=== PATIENT | female | born 1970 | race American Indian/Alaskan Native ===

== ENCOUNTER 2018-03-16 08:58 | Emergency (ER) | payer SELFPAY ==
[2018-03-16 09:06] VITALS: BP 134/89
--- NOTE | 2018-03-16 09:19 | Emergency Department Report ---
ED Fall HPI - General Chief Complaint: Fall Stated Complaint: FALL/BACK/KNEE/LEG PAIN Time Seen by Provider: 03/16/18 09:13 Source: patient Mode of arrival: Ambulatory - History of Present Illness Initial Comments: She stated that she felt from a stool last night while she was at a bar yesterday. Patient denied any loss of consciousness or head injury. No weakness numbness or pain sensation. Patient is complaining of lower back pain and bilateral knee pain. MD Complaint: fall -: Sudden, Last night Fall From: other (from a stool) When Fall Occurred: 24 hours [employer] Fall Witnessed: yes, by bystander Place Fall Occurred: other (bar) Loss of Consciousness: none Prolonged Down Time?: no Symptoms Prior to Fall: none Location: back Location - Extremities: Left: Knee, Right: Knee Context: tripped/slipped Associated Symptoms: denies: headache, neck pain, numbness, weakness, chest paint, shortness of breath, abdominal pain, hematuria, unable to walk, lightheaded, vertigo, confusion, other - Related Data Allergies Allergy/AdvReac Type Severity Reaction Status Date / Time No Known Allergies Allergy Unverified 03/16/18 09:05 ED Review of Systems ROS: Stated complaint: FALL/BACK/KNEE/LEG PAIN Other details as noted in HPI Comment: All other systems reviewed and negative Constitutional: denies: chills Respiratory: denies: cough, shortness of breath Cardiovascular: denies: chest pain Gastrointestinal: denies: abdominal pain ED Past Medical Hx - Past Medical History Previous Medical History?: Yes Additional medical history: TIA. High cholesterol - Surgical History Past Surgical History?: No - Social History Smoking Status: Never Smoker Substance Use Type: None ED Physical Exam - General Limitations: No Limitations General appearance: alert, in no apparent distress - Head Head exam: Present: atraumatic, normocephalic, normal inspection - Eye Eye exam: Present: normal appearance, PERRL - ENT ENT exam: Present: normal exam, normal orophraynx - Neck Neck exam: Present: normal inspection, full ROM. Absent: tenderness, meningismus, lymphadenopathy, thyromegaly - Respiratory Respiratory exam: Present: normal lung sounds bilaterally - Cardiovascular Cardiovascular Exam: Present: regular rate, normal heart sounds - GI/Abdominal GI/Abdominal exam: Present: soft. Absent: distended, tenderness, guarding, rebound, rigid - Extremities Exam Extremities exam: Present: normal inspection, full ROM, normal capillary refill. Absent: tenderness, pedal edema, joint swelling - Back Exam Back exam: Present: normal inspection, full ROM, muscle spasm. Absent: tenderness, CVA tenderness (R), CVA tenderness (L), paraspinal tenderness, vertebral tenderness, rash noted - Neurological Exam Neurological exam: Present: alert, oriented X3, CN II-XII intact, normal gait - Skin Skin exam: Present: warm, intact, normal color ED Course Vital Signs 03/16/18 09:00 Temperature 98.6 F Pulse Rate 89 Respiratory 16 Rate Blood Pressure 134/89 O2 Sat by Pulse 100 Oximetry ED Medical Decision Making - Radiology Data Radiology results: report reviewed X-ray of the lumbosacral area is unremarkable for acute finding. Critical care attestation.: If time is entered above; I have spent that time in minutes in the direct care of this critically ill patient, excluding procedure time. ED Disposition Clinical Impression: Fall, Lumbar strain Disposition: - TO HOME OR SELFCARE Is pt being admited?: No Condition: Stable Instructions: Muscle Strain (ED)
--- NOTE | 2018-03-16 09:56 | XRay Report ---
LUMBAR SPINE RADIOGRAPHS: INDICATION: Back injury. COMPARISON: None similar. FINDINGS: AP and lateral lumbar spine radiographs demonstrate preserved vertebral body stature, alignment and disc heights. Colonic stool/possible constipation. No obstruction. Normal bilateral SI joints. CONCLUSION: No acute lumbar radiographic abnormality. Thank you for the opportunity to participate in this patient's care.
== END 2018-03-16 10:12 | disposition home or self-care (01) ==
LOC: ED 08:58
DX: S39.012A Strain of muscle, fascia and tendon of lower back, initial encounter (principal); M25.561 Pain in right knee; M25.562 Pain in left knee; E78.00 Pure hypercholesterolemia, unspecified; Z86.73 Personal history of transient ischemic attack (TIA), and cerebral infarction without residual deficits; W08.XXXA Fall from other furniture, initial encounter; Y93.89 Activity, other specified; Y99.8 Other external cause status; Y92.838 Other recreation area as the place of occurrence of the external cause
CPT/HCPCS: 72100; 99283

== ENCOUNTER 2018-05-28 10:53 | Outpatient (CLI) | payer OTHER ==
--- NOTE | 2018-05-28 13:32 | Mammography Report ---
Screening mammogram: Routine views demonstrate a heterogeneously dense fibroglandular pattern. There is a focal asymmetry in the upper-outer right breast. There are surgical clips located in the superolateral anterior left breast. The findings are not otherwise remarkable. Comparing the current exam to her prior exam in 2009 demonstrates that the surgical clips occurred since then. The right asymmetry is seemingly present on her prior CC images but not identified in the MLO projection. It was identified as a simple cyst on prior ultrasound. CAD used. Impression: Right breast asymmetry questionably new since prior exam. Recommendation: Additional compression imaging of the right breast and right breast ultrasound. BI-RADS CATEGORY: 0 = Needs additional imaging evaluation ACR BI-RADS MAMMOGRAPHIC CODES: 0 = Needs additional imaging evaluation; 1 = Negative; 2 = Benign; 3 = Probably benign; 4 = Suspicious; 5 = Malignant; 6 = Known biopsy-proven malignancy COMMENT: 1. Dense breast tissue, i.e., adenosis, fibrocystic changes, etc., may obscure an underlying neoplasm. 2. Approximately 10% of cancers are not detected with mammography. 3. A negative mammography report should not delay biopsy if a clinically suspicious mass is present.
== END 2018-05-28 10:54 | disposition home or self-care (01) ==
LOC: SPVWC 10:53
PROVIDERS: ATTEND Internal Medicine
DX: Z12.31 Encounter for screening mammogram for malignant neoplasm of breast (principal)
CPT/HCPCS: 77067

== ENCOUNTER 2018-11-18 05:47 | Day surgery (SDC) | payer OTHER ==
[~2018-11-18 05:47] MED LIST: NACL 0.9% 1000 ML 1,000 ML IV SCH
[2018-11-18] MEDS ORDERED: WATER FOR IRRIG STERILE ONE (06:44)
[2018-11-18] MEDS ORDERED: WATER FOR IRRIG STERILE IR ONE (06:44)
[2018-11-18] MEDS ORDERED: NACL 0.9% 1000 ML 1,000 ML IV SCH (07:00)
[2018-11-18] MEDS ORDERED: DIPRIVAN 10 MG/ML IV ONE ×3 (07:17→08:43)
[2018-11-18] MEDS ORDERED: XYLOCAINE 2% INFILTRATI ONE (07:17)
--- NOTE | 2018-11-18 07:26 | Anesthesia Consultation ---
Anesthesia Consult and Med Hx Date of service: 11/18/18 - Airway Anesthetic Teeth Evaluation: Good ROM Head & Neck: Adequate Mental/Hyoid Distance: Adequate Mallampati Class: Class II Intubation Access Assessment: Probably Good - Pre-Operative Health Status ASA Pre-Surgery Classification: ASA2 Proposed Anesthetic Plan: MAC - Pulmonary Hx Smoking: No Hx Asthma: No COPD: No - Cardiovascular System Hx Hypertension: Yes - Central Nervous System CVA: Yes - Hematic Hx Anemia: Yes
--- NOTE | 2018-11-18 07:26 | Anesthesia Day of Surgery ---
Anesthesia Day of Surgery - Day of Surgery Patient Examined: Yes Patient H&P Reviewed: Yes Patient is NPO: Yes
[2018-11-18 09:07] VITALS: BP 129/77
--- NOTE | 2018-11-18 09:52 | Post Anesthesia Evaluation ---
- Post Anesthesia Evaluation Patient Participated: No (sleeping) Airway Patent: Yes Stable Respiratory Function: Yes Nausea/Vomiting: No Temp > 96.8F: Yes Pain Manageable: Yes Adequeate Hydration: Yes Anesthesia Complications: No Block Receding Appropriately: Not Applicable Patient on Ventilator: No
== END 2018-11-18 05:48 | disposition home or self-care (01) ==
LOC: GIO 05:47
PROVIDERS: ATTEND Internal Medicine Gastroenterology
DX: Z12.11 Encounter for screening for malignant neoplasm of colon (principal); D12.2 Benign neoplasm of ascending colon; K64.8 Other hemorrhoids; K57.30 Diverticulosis of large intestine without perforation or abscess without bleeding; K21.9 Gastro-esophageal reflux disease without esophagitis; I10 Essential (primary) hypertension; G43.909 Migraine, unspecified, not intractable, without status migrainosus; E11.9 Type 2 diabetes mellitus without complications; D64.9 Anemia, unspecified; Z79.82 Long term (current) use of aspirin; Z79.899 Other long term (current) drug therapy; Z91.040 Latex allergy status; Z88.8 Allergy status to other drugs, medicaments and biological substances; Z98.51 Tubal ligation status; Z86.711 Personal history of pulmonary embolism; Z86.73 Personal history of transient ischemic attack (TIA), and cerebral infarction without residual deficits; Z80.8 Family history of malignant neoplasm of other organs or systems; Z82.49 Family history of ischemic heart disease and other diseases of the circulatory system
CPT/HCPCS: 45380; 88305; J2704; J7030

== ENCOUNTER 2019-01-19 12:25 | Outpatient (CLI) | payer OTHER ==
--- NOTE | 2019-01-19 14:58 | Ultrasound Report ---
RIGHT DIGITAL DIAGNOSTIC MAMMOGRAM and right breast ultrasound: 01/19/19 12:25:00 CLINICAL: Upper outer asymmetries on screening mammogram. COMPARISON:05/28/18 mammogram FINDINGS: Satisfactory effacement of previously identified upper outer asymmetries. However, additional new asymmetries are identified. Ultrasound of the right breast (including all four quadrants and the retroareolar area) was performed and demonstrated numerous benign cysts. The largest is at 10 o'clock 5 cm from the nipple and measures 11 x 7 x 6 mm. It appears to correlate with the previously identified asymmetry. An oval complex cyst versus solid mass at 6 o'clock 1 cm from the nipple measures 1.0 x 0.6 x 0.8 cm. IMPRESSION: Numerous benign cysts and a complex cyst versus solid right breast mass at 6 o'clock 1 cm from the nipple. BI-RADS CATEGORY: 4--Suspicious RECOMMENDATION: Ultrasound guided needle aspiration and core biopsy of the lesion at 6 o'clock 1 cm from the nipple if fluid is not obtained with aspiration. I discussed the findings and the recommendation for aspiration/needle core biopsy with the patient at the time of the examination. ACR BI-RADS MAMMOGRAPHIC CODES: 0 = Needs additional imaging evaluation; 1 = Negative; 2 = Benign; 3 = Probably benign; 4 = Suspicious; 5 = Malignant; 6 = Known biopsy-proven malignancy COMMENT: 1. Dense breast tissue, i.e., adenosis, fibrocystic changes, etc., may obscure an underlying neoplasm. 2. Approximately 10% of cancers are not detected with mammography. 3. A negative mammography report should not delay biopsy if a clinically suspicious mass is present. COMMENT: Patient follow-up letters are generated via our [employer] system application.
== END 2019-01-19 12:26 | disposition home or self-care (01) ==
LOC: SPVWC 12:25
PROVIDERS: ATTEND Internal Medicine
DX: N60.01 Solitary cyst of right breast (principal); I10 Essential (primary) hypertension; K21.9 Gastro-esophageal reflux disease without esophagitis

== ENCOUNTER 2019-02-09 11:36 | Outpatient (CLI) | payer OTHER ==
--- NOTE | 2019-02-09 14:22 | Mammography Report ---
RIGHT DIGITAL DIAGNOSTIC MAMMOGRAM: 02/09/19 11:36:00 CLINICAL: For clip placement immediately status post ultrasound biopsy. COMPARISON:01/19/19 FINDINGS: A biopsy clip is now identified at 6 o'clock and is concordant with the ultrasound finding. IMPRESSION: Concordant clip placement status post ultrasound biopsy. BI-RADS CATEGORY: 4--Suspicious Pathology pending.
--- NOTE | 2019-02-09 15:18 | Ultrasound Report ---
ULTRASOUND GUIDED NEEDLE CORE BIOPSY RIGHT BREAST WITH CLIP PLACEMENT: 02/09/19 CLINICAL: Complex cyst versus solid mass at 6 o'clock 2 cm from the nipple. COMPARISON :01/19/19 FINDINGS: The procedure was explained to the patient and informed consent was obtained. Ultrasound demonstrated the previously described an oval heterogeneous hypoechoic solid appearing mass at 6 o'clock 2 cm from the nipple. I opted to not attempt aspiration. I marked the breast with a felt tip marker and a time out was called. The skin was prepped with Betadine and anesthetized with 1% lidocaine. Needle core biopsy was performed through a tiny dermatotomy using ultrasound guidance, 2% lidocaine with epinephrine for deep anesthesia and a 14-gauge Achieve biopsy device. 2 cores were obtained and placed in formalin. Within the second core was obtained, a moderate amount of pulsating hemorrhage was observed at the incision. I applied pressure and achieve satisfactory hemostasis within about 4 minutes. I opted to end the procedure and deployed a clip within the mass. A sterile dressing with an Abhijit bandage wrap was applied. A two view mammogram demonstrated satisfactory placement of the clip and minimal hematoma in the breast. She left the department in good condition and was given instructions for wound care and followup. IMPRESSION: Ultrasound guided needle core biopsy of the right breast with a slightly greater than usual amount of hemorrhage observed during the procedure.
== END 2019-02-09 11:37 | disposition home or self-care (01) ==
LOC: SPVWC 11:36
PROVIDERS: ATTEND Internal Medicine
DX: D24.1 Benign neoplasm of right breast (principal); N60.91 Unspecified benign mammary dysplasia of right breast; N60.81 Other benign mammary dysplasias of right breast; I10 Essential (primary) hypertension; K21.9 Gastro-esophageal reflux disease without esophagitis; Z91.040 Latex allergy status; Z86.711 Personal history of pulmonary embolism; Z86.2 Personal history of diseases of the blood and blood-forming organs and certain disorders involving the immune mechanism
CPT/HCPCS: 88305

== ENCOUNTER 2019-04-02 15:36 | Outpatient (CLI) | payer OTHER | END 2019-04-02 15:37 | disposition home or self-care (01) | LOC: LABHHL 15:36 | PROVIDERS: ATTEND Surgery | DX: T88.8XXA Other specified complications of surgical and medical care, not elsewhere classified, initial encounter (principal); I10 Essential (primary) hypertension; K21.9 Gastro-esophageal reflux disease without esophagitis; Y83.9 Surgical procedure, unspecified as the cause of abnormal reaction of the patient, or of later complication, without mention of misadventure at the time of the procedure | CPT/HCPCS: 87075; 87116 ==

== ENCOUNTER 2020-11-15 08:54 | Outpatient (CLI) | payer OTHER ==
--- NOTE | 2020-11-15 10:00 | Mammography Report ---
DIGITAL DIAGNOSTIC MAMMOGRAM WITH CAD CONVENTIONAL, 11/15/2020 CLINICAL INFORMATION / INDICATION: RIGHT BREAST LUMP TECHNIQUE: Digital right mammographic imaging was performed. Spot compression views were obtained. This examination was interpreted with the benefit of Computer-aided Detection analysis. COMPARISON: 04/27/2020, 02/09/2019, 01/19/2019 FINDINGS: Breast Density: The breast is heterogeneously dense, which may obscure small masses. More prominent multifocal nodularity is seen throughout the upper outer right breast without a suspic ious dominant mass, asymmetry or suspicious calcification. IMPRESSION: Nonspecific increased prominence of nodularity throughout the upper outer right breast. A right breast ultrasound is recommended for further evaluation. Follow up recommendation: Ultrasound BI-RADS Category 0: Incomplete. Needs additional imaging evaluation and/or prior mammograms for ruslan ramon. A "normal" or negative report should not discourage follow up or biopsy of a clinically significant f inding. A written summary of these findings will be mailed to the patient. The patient will be entered into a mammography reporting system which will generate a reminder letter for the patient's next appointmen t at the appropriate interval. According to the [employer], yearly mammograms are recommended starting at age 40 and continuing as long as a woman is in good health. Breast MRI is recommended for women with an kristina roximately 20-25% or greater lifetime risk of breast cancer, including women with a strong family his tory of breast or ovarian cancer and women who have been treated for Hodgkin's disease. Signer Name: Russell Gordon MD Signed: 11/15/2020 9:55 AM Workstation Name: [email or web address]
--- NOTE | 2020-11-15 11:36 | Ultrasound Report ---
ULTRASOUND BREAST RIGHT LIMITED, 11/15/2020 CLINICAL INFORMATION / INDICATION: Right breast lump. TECHNIQUE: Targeted ultrasound evaluation was performed of the area of interest. COMPARISON: Diagnostic right mammogram performed on the same day. FINDINGS: Multiple cysts are seen throughout the upper outer quadrant of the right breast correlating with the mammographically evident nodularity and measuring up to 9 mm without suspicious features. In the 10:0 0 position 5 cm from the nipple is a hypoechoic nodule versus asymmetric glandular tissue measuring 8 x 4 x 4 mm that is parallel with angular margins without internal color flow, calcification or poste rior acoustic shadowing. IMPRESSION: Indeterminate 10:00 right breast nodule as detailed above. Biopsy with ultrasound guidanc e is recommended for further evaluation. Additional benign findings as above. Follow up recommendation: Biopsy BI-RADS Category 4: Suspicious for Malignancy. A normal or "negative" report should not preclude biopsy or follow-up of a clinically suspicious find ing. Signer Name: Russell Gordon MD Signed: 11/15/2020 11:31 AM Workstation Name: [id number]
== END 2020-11-15 08:55 | disposition home or self-care (01) ==
LOC: SPVWC 08:54
PROVIDERS: ATTEND Surgery
DX: N63.11 Unspecified lump in the right breast, upper outer quadrant (principal)

== ENCOUNTER 2020-11-30 09:54 | Outpatient (CLI) | payer OTHER ==
--- NOTE | 2020-11-30 12:56 | Ultrasound Report ---
Limited right breast Ultrasound HISTORY: ABNORMAL U/S. patient with history of right breast cysts and pain as well as a questionable nodule on previous ultrasound, here for aspiration and potential biopsy TECHNIQUE: Grayscale and color imaging performed. COMPARISON: Right breast ultrasound from 11/15/2020 PROCEDURE: The risks (including but not limited to bleeding and infection) and benefits were explain ed to the patient and informed consent was obtained. A time out procedure was performed. The proced ure site was prepped and draped in the usual sterile fashion and lidocaine was used for local anesthe claudia. Under ultrasound guidance, the right breast was evaluated in several simple cysts were present. Previ ously questioned tiny nodule was not identified with specific attention paid to the 10:00 location mi d-breast where this was previously seen. This may have represented a lobule seen in an oblique plane. No biopsy was performed. I did puncture several of the cysts and performed and aspirate which was bonner bmitted to pathology for further evaluation. The patient tolerated the procedure well without complic ation. IMPRESSION: Successful right breast cyst aspiration and rupture with no biopsy performed. Signer Name: Hernan Diez MD Signed: 11/30/2020 12:52 PM Workstation Name: [id number]
== END 2020-11-30 09:55 | disposition home or self-care (01) ==
LOC: US 09:54
PROVIDERS: ATTEND Surgery
DX: N60.01 Solitary cyst of right breast (principal); R92.8 Other abnormal and inconclusive findings on diagnostic imaging of breast
CPT/HCPCS: 76942; 88112; 88173

== ENCOUNTER 2021-02-28 12:08 | Outpatient (CLI) | payer OTHER ==
--- NOTE | 2021-02-28 13:58 | Mammography Report ---
LEFT DIAGNOSTIC MAMMOGRAM INDICATION: Status post left 3:00 breast biopsy. COMPARISON: 04/27/2020. Outside ultrasound performed at Dr. Álvarez's office. FINDINGS: Left breast CC and ML projection mammograms document a U-shaped biopsy marker in the left b reast at the 3:00 position (site of recent ultrasound-guided core biopsy). Postsurgical changes are n oted in this region with multiple surgical janice. IMPRESSION: Left breast mammographic images documenting accurate location of a U-shaped biopsy marker at site of ultrasound-guided core biopsy in the left breast at the 3:00 position. BI-RADS Category 4: Suspicious for Malignancy. Signer Name: Bossman Wilkerson MD Signed: 02/28/2021 1:53 PM Workstation Name: [id number]
--- NOTE | 2021-02-28 14:31 | Ultrasound Report ---
ULTRASOUND-GUIDED CORE NEEDLE BIOPSY Left BREAST WITH CLIP PLACEMENT INDICATION: Left breast cystic lesion at the 3:00 position. FINDINGS: Informed consent was obtained. The cystic lesion within the left breast at the 3:00 position, 2 cm fr om the nipple, was identified. Compared to the imaging obtained at Dr. Álvarez's office, the cyst a ppears more complex with questionable thickened marte noted currently. Given the more complex appeara nce, it was felt that an ultrasound-guided core biopsy would be more accurate than aspiration. The overlying skin was cleansed with chloro prep and local anesthesia was obtained with a 1% lidocain e solution. Under ultrasound guidance a 14-gauge spring loaded core biopsy needle was advanced to the lesion. A total of 4 core samples were obtained. U-shaped biopsy marker was placed to lorie the site of the biopsy. Specimen samples were placed in formalin and sent to pathology for analysis. Patient tolerated the procedure well and no immediate complications were identified. A post procedure mammogram demonstrates biopsy marker in the expected location near the site of an area of postsurgic al change. IMPRESSION: Technically successful ultrasound-guided core biopsy of left breast lesion at the 3:00 position with placement of U shaped biopsy marker. An addendum will be added to this report once pathology results are available. Signer Name: Bossman Wilkerson MD Signed: 02/28/2021 2:26 PM Workstation Name: [id number]
== END 2021-02-28 12:09 | disposition home or self-care (01) ==
LOC: SPVWC 12:08
PROVIDERS: ATTEND Surgery
DX: N63.23 Unspecified lump in the left breast, lower outer quadrant (principal); N64.89 Other specified disorders of breast; G43.909 Migraine, unspecified, not intractable, without status migrainosus; K21.9 Gastro-esophageal reflux disease without esophagitis; D64.9 Anemia, unspecified; Z88.5 Allergy status to narcotic agent; Z91.040 Latex allergy status; Z88.8 Allergy status to other drugs, medicaments and biological substances; Z79.899 Other long term (current) drug therapy; Z79.82 Long term (current) use of aspirin; Z86.73 Personal history of transient ischemic attack (TIA), and cerebral infarction without residual deficits; Z98.891 History of uterine scar from previous surgery; Z98.890 Other specified postprocedural states
CPT/HCPCS: 88305

== ENCOUNTER 2021-05-05 11:02 | Outpatient (CLI) | payer OTHER ==
--- NOTE | 2021-05-05 12:19 | Mammography Report ---
BILATERAL DIGITAL DIAGNOSTIC MAMMOGRAM WITH CAD , 05/05/2021 CLINICAL INFORMATION / INDICATION: History of benign left breast biopsy 10/23/2020. UNSPECIFIED LUMP IN UNSPECIFIED BREAST TECHNIQUE: Digital bilateral mammographic imaging was performed. This examination was interpreted with the benefit of Computer-aided Detection analysis. COMPARISON: Prior mammograms including 04/27/2020 and 05/28/2018 FINDINGS: Breast Density: The breasts are heterogeneously dense, which may obscure small masses. No dominant mass, suspicious calcifications or architectural distortion in either breast. Postsurgical biopsy is present in the upper outer left breast. Several surgical clips are present as well as biopsy clip at the prior surgical site. Benign-appearing nodularity has changed slightly thro ughout the right right breast consistent with fibrocystic change. IMPRESSION: No mammographic evidence of malignancy. Follow up recommendation: Routine yearly BI-RADS Category 2: Benign. A "normal" or negative report should not discourage follow up or biopsy of a clinically significant f inding. A written summary of these findings will be mailed to the patient. The patient will be entered into a mammography reporting system which will generate a reminder letter for the patient's next appointmen t at the appropriate interval. According to the [employer], yearly mammograms are recommended starting at age 40 and continuing as long as a woman is in good health. Breast MRI is recommended for women with an kristina roximately 20-25% or greater lifetime risk of breast cancer, including women with a strong family his tory of breast or ovarian cancer and women who have been treated for Hodgkin's disease. Signer Name: Tara Frost MD Signed: 05/05/2021 12:14 PM Workstation Name: [email or web address]
== END 2021-05-05 11:03 | disposition home or self-care (01) ==
LOC: SPVWC 11:02
PROVIDERS: ATTEND Surgery
DX: N63.0 Unspecified lump in unspecified breast (principal)
CPT/HCPCS: 77066